=== PATIENT | female | born 1945 | race Caucasian/White ===

== ENCOUNTER 2016-12-20 17:49 | Emergency (ER) | payer MEDICARE ==
[2016-12-20 17:56] VITALS: RESP 18
--- NOTE | 2016-12-20 18:28 | XR ---
EXAMINATION TYPE: XR knee complete LT DATE OF EXAM: 12/20/2016 6:21 PM COMPARISON: 05/11/2009 HISTORY: Knee pain TECHNIQUE: 3 views FINDINGS: I see no fracture nor dislocation. Joint spaces are normal. There is probably a small knee joint effusion. IMPRESSION: Small knee joint effusion appears new compared to old exam. Normal joint spaces.
--- NOTE | 2016-12-20 19:16 | ED ---
General Adult HPI - General Chief complaint: Extremity Injury, Lower Stated complaint: left knee pain, no injury Time Seen by Provider: 12/20/16 18:08 Source: patient, RN notes reviewed Mode of arrival: wheelchair Limitations: no limitations - History of Present Illness Initial comments: Patient 71-year-old female who presents emergency room today with a chief complaint of pain to the left knee. She does admit to twisting a few weeks ago when she was helping another patient. She states she has been working a lot lately carrying heavier objects. She states that she's had increased pain to the left knee with some swelling. States she had something similar in the past to the opposite knee. Patient states she's been using some [id number] topical medicines with some relief the symptoms. She denies any other complaints associated symptoms. Patient denies any recent fever, chills, shortness of breath, chest pain, back pain, abdominal pain, nausea or vomiting, numbness or tingling, dysuria or hematuria, constipation or diarrhea, headaches or visual changes, or any other complaints. - Related Data Home Medications Medication Instructions Recorded Confirmed Homeopathic Arthritis, Joint, And 1 tab PO DIRECTED PRN 12/20/16 12/20/16 Muscle Pain Relief Menthol [Biofreeze] 1 applic TOPICAL QID PRN 12/20/16 12/20/16 Stop Pain [place] 1 spray TOPICAL QID PRN 12/20/16 12/20/16 Vitamin E (Dl,Tocopheryl Acet) 400 unit PO DAILY 12/20/16 12/20/16 [Vitamin E] Allergies Allergy/AdvReac Type Severity Reaction Status Date / Time No Known Allergies Allergy Verified 12/20/16 18:04 Review of Systems ROS Statement: Those systems with pertinent positive or pertinent negative responses have been documented in the HPI. ROS Other: All systems not noted in ROS Statement are negative. Past Medical History Past Medical History: No Reported History History of Any Multi-Drug Resistant Organisms: None Reported Past Surgical History: Orthopedic Surgery Additional Past Surgical History / Comment(s): Right hand surgery; D&C Past Psychological History: No Psychological Hx Reported Smoking Status: Never smoker Past Alcohol Use History: None Reported Past Drug Use History: None Reported General Exam - General Exam Comments Initial Comments: General: The patient is awake and alert, in no distress, and does not appear acutely ill. Eye: Pupils are equal, round and reactive to light, extra-ocular movements are intact. No nystagmus. There is normal conjunctiva bilaterally. No signs of icterus. Ears, nose, mouth and throat: There are moist mucous membranes and no oral lesions. Neck: The neck is supple, there is no tenderness or JVD. Cardiovascular: There is a regular rate and rhythm. No murmur, rub or gallop is appreciated. Respiratory: Lungs are clear to auscultation, respirations are non-labored, breath sounds are equal. No wheezes, stridor, rales, or rhonchi. Musculoskeletal: Mild swelling to the left knee. Patient shows full range of motion. Sensations intact with pulses bilaterally 2+. Strength 5/5 in all areas. Mild tenderness with varus stress. Negative Tanisha's. Neurological: A&O x 3. CN II-XII intact, There are no obvious motor or sensory deficits. Coordination appears grossly intact. Speech is normal. Skin: Skin is warm and dry and no rashes or lesions are noted. Psychiatric: Cooperative, appropriate mood & affect, normal judgment. Limitations: no limitations Course Vital Signs 12/20/16 17:51 Temperature 98.0 F Pulse Rate 74 Respiratory 18 Rate Blood Pressure 246/108 O2 Sat by Pulse 99 Oximetry Medical Decision Making - Medical Decision Making Patient's x-rays reviewed and are unremarkable that show an effusion. No other bony abnormalities. Results were discussed with patient. Advised ice elevate and use anti-inflammatories for pain. Advised follow-up to orthopedics doctor over the next 2 days. Patient blood pressure elevating in the emergency room has improved some. She does admit to white coat syndrome. States checks it regularly at work and she typically runs in the normal ranges. At this time patient has slightly medications to be given for this blood pressure. She is advised follow-up the family doctor have blood pressure followed and rechecked. Advised return to emergency room for any other concerns. Disposition Clinical Impression: Knee effusion Disposition: HOME SELF-CARE Condition: Good Instructions: Swollen Knee Joint (ED) Additional Instructions: Please follow-up with orthopedic doctor over the next 2 days as discussed. Please continue to ice elevate the affected area use ibuprofen for pain as needed. Please have blood pressure rechecked with family doctor as discussed. Please return to the emergency room. For any increase or worsening symptoms or any other concerns. Referrals: None,Stated [Primary Care Provider] - 1-2 days Shahriar Amaya DO [Doctor of Osteopathic Medicine] - 1-2 days Time of Disposition: 19:18
[2016-12-20 19:23] VITALS: BP 196/92; PULSE 67; TEMP 97.8
== END 2016-12-20 19:23 | disposition home or self-care (01) ==
LOC: EC 17:49
DX: M25.462 Effusion, left knee (principal); X50.1XXA Overexertion from prolonged static or awkward postures, initial encounter; Y93.F9 Activity, other caregiving; Y99.0 Civilian activity done for income or pay
CPT/HCPCS: 99283